=== PATIENT | female | born 1950 | race Two or more races ===

== ENCOUNTER 2021-01-05 16:46 | Emergency (ER) | payer MEDICAID ==
[~2021-01-05] VITALS: Ht 162.6 cm; Wt 90.0 kg
[2021-01-05 17:02] VITALS: BP 125/70
[2021-01-06] MEDS ORDERED: ASPI-1497 MT (10:36)
[2021-01-06] MEDS ORDERED: METF-414 MT (10:36)
[2021-01-06] MEDS ORDERED: ATOR40TA70 MT (10:36)
== END 2021-01-05 18:59 | disposition left against medical advice (07) ==
LOC: ER 16:46
DX: R55 Syncope and collapse (principal); I45.10 Unspecified right bundle-branch block; I25.2 Old myocardial infarction; Z53.21 Procedure and treatment not carried out due to patient leaving prior to being seen by health care provider
CPT/HCPCS: 71045; 93005; 99281; 99283

== ENCOUNTER 2021-01-06 00:10 | Inpatient (IN) | payer MEDICAID ==
[~2021-01-06] VITALS: Ht 162.6 cm; Wt 98.7 kg
[2021-01-06 02:36] LABS: BASOPHILS % 0.5 % (0.0-2.0); HEMATOCRIT. 42.2 % (36.0-48.0); HEMOGLOBIN. 14.4 g/dL (12.0-16.0); LYMPHOCYTES % 39.6 % (20.0-50.0); MEAN CORPUSCULAR HEMOGLOBIN 32.3 pg (28.0-32.0); MEAN CORPUSCULAR VOLUME 94.6 fL (81.0-99.0); MEAN PLATELET VOLUME 8.2 fl (7.4-10.4); MONOCYTES % 9.6 % (2.0-8.0); NEUTROPHILS % 49.3 % (40.0-76.0); PLATELET 172 x1000/uL (130-400); RED BLOOD CELL COUNT 4.46 mill/uL (4.2-5.4)
[2021-01-06 02:38] LABS: CHLORIDE 109 mEq/L (98-107)
[2021-01-06] MEDS ORDERED: LORAZEPAM 0.5MG TABLET PO PRN ×2 (04:00→15:15)
[2021-01-06] MEDS ORDERED: NALOXONE HCL 0.4MG/ML VIAL IV PRN ×2 (04:00→15:45)
[2021-01-06] MEDS ORDERED: MORPHINE SULFATE 2 MG/ML CPJ (NOT FOR IM USE) IV PRN (04:00)
[2021-01-06] MEDS ORDERED: METF-414 MT (10:36)
[2021-01-06] MEDS ORDERED: ASPI-1497 MT (10:36)
[2021-01-06] MEDS ORDERED: ATOR40TA70 MT (10:36)
[2021-01-06 10:53] VITALS: BP 114/76
[2021-01-06 12:00] VITALS: BP 117/68
[2021-01-06] MEDS ORDERED: DOCUSATE SODIUM 100MG CAPSULE PO PRN (15:15)
[2021-01-06] MEDS ORDERED: IPRATROPIUM/ALBUTEROL 0.5-3(2.5)MG/3ML NEB HHN PRN (15:15)
[2021-01-06] MEDS ORDERED: CLONIDINE 0.1MG TABLET PO PRN (15:15)
[2021-01-06] MEDS ORDERED: HYDROCODONE/ACETAMINOPHEN 5/325MG TABLET PO PRN (15:15)
[2021-01-06] MEDS ORDERED: ACETAMINOPHEN 325MG TABLET PO PRN (15:15)
[2021-01-06] MEDS ORDERED: ONDANSETRON HCL 4MG/2ML INJ IV PRN (15:15)
[2021-01-06 16:00] VITALS: BP 120/61
[2021-01-06] MEDS ORDERED: DEXTROSE 50% WATER 50ML SYRINGE IV PRN (18:15)
[2021-01-06] MEDS: INSULIN LISPRO 100 UNITS/ML SUBCUT SCH (21:00)
[2021-01-06] MEDS: BLOOD SUGAR DIAGNOSTIC STRIP TEST SCH (21:00)
[2021-01-06] MEDS: ACETAMINOPHEN 325MG TABLET PO PRN (21:32)
[2021-01-07 06:08] LABS: CHLORIDE 109 mEq/L (98-107)
[2021-01-07 06:14] LABS: BASOPHILS % 0.7 % (0.0-2.0); EOSINOPHILS % 1.4 % (0.0-5.0); HEMATOCRIT. 42.6 % (36.0-48.0); HEMOGLOBIN. 14.4 g/dL (12.0-16.0); MEAN CORPUSCULAR HEMOGLOBIN 31.9 pg (28.0-32.0); MEAN CORPUSCULAR VOLUME 94.5 fL (81.0-99.0); MEAN PLATELET VOLUME 7.6 fl (7.4-10.4); MONOCYTES % 9.2 % (2.0-8.0); NEUTROPHILS % 44.7 % (40.0-76.0); PLATELET 184 x1000/uL (130-400); RED BLOOD CELL COUNT 4.51 mill/uL (4.2-5.4)
[2021-01-07 06:20] LABS: LDL CHOLESTEROL 70 mg/dL (5-100); PHOSPHORUS 3.4 mg/dL (2.5-4.9)
[2021-01-07 06:23] LABS: HDL CHOLESTEROL 44 mg/dL (40-59)
[2021-01-07] MEDS: BLOOD SUGAR DIAGNOSTIC STRIP TEST SCH ×4 (06:40→21:00)
[2021-01-07] MEDS: INSULIN LISPRO 100 UNITS/ML SUBCUT SCH ×4 (07:10→23:26)
[2021-01-07 08:00] VITALS: BP 100/68
[2021-01-07 12:00] VITALS: BP 101/54
[2021-01-07] MEDS ORDERED: LIDOCAINE HCL 1% 20ML VIAL (Pyxis) INJ ONE ×2 (14:28→14:51)
[2021-01-07] MEDS ORDERED: GENTAMICIN SULF 40MG/ML 2ML VIAL ONE (14:28)
[2021-01-07] MEDS ORDERED: IODIXANOL 320MG/ML 100 ML BOTTLE IV ONE (14:29)
[2021-01-07] MEDS ORDERED: GENTAMICIN/NS IRRIGATION 500 ML IR ONE (14:29)
[2021-01-07] MEDS ORDERED: PROPOFOL 200MG/20ML VIAL IV ONE (15:48)
[2021-01-07] MEDS ORDERED: SUCCINYLCHOLINE CHLORIDE 200MG/10ML IV ONE (15:48)
[2021-01-07] MEDS ORDERED: EPHEDRINE SULFATE 50MG/ML VIAL ONE ×2 (15:54→17:02)
[2021-01-07] MEDS ORDERED: ETOMIDATE 2MG/ML 10ML VIAL IV ONE (15:56)
[2021-01-07] MEDS ORDERED: CEFAZOLIN SODIUM 1000MG/VIAL ONE (16:09)
[2021-01-07] MEDS ORDERED: ONDANSETRON HCL 4MG/2ML INJ ONE (16:20)
[2021-01-07] MEDS ORDERED: DEXAMETHASONE 4MG/ML 1ML VIAL ONE (16:21)
[2021-01-07] MEDS ORDERED: FENTANYL CITRATE/PF 50MCG/ML 2ML VIAL ONE (16:22)
[2021-01-07] MEDS ORDERED: ROCURONIUM BROMIDE 10MG/ML VIAL 5ML IV ONE (16:22)
[2021-01-07] MEDS ORDERED: PHENYLEPHRINE HCL 10 MG/ML 1ML (IV VIAL) IV ONE (17:14)
[2021-01-07] MEDS ORDERED: ONDANSETRON HCL 4MG/2ML INJ IV PRN (19:15)
[2021-01-07] MEDS ORDERED: HYDROMORPHONE HCL/PF 2MG/ML CPJ IV PRN (19:15)
[2021-01-07] MEDS ORDERED: HYDROCODONE/ACETAMINOPHEN 5/325MG TABLET PO PRN (19:30)
[2021-01-07 22:00] VITALS: BP 107/54
[2021-01-08] VITALS (9 sets, daily range): BP systolic 90–105; BP diastolic 44–69
[2021-01-08 06:41] LABS: CHLORIDE 110 mEq/L (98-107)
[2021-01-08] MEDS: BLOOD SUGAR DIAGNOSTIC STRIP TEST SCH ×3 (06:50→17:17)
[2021-01-08 06:57] LABS: BASOPHILS % 0.1 % (0.0-2.0); HEMATOCRIT. 43.6 % (36.0-48.0); HEMOGLOBIN. 14.5 g/dL (12.0-16.0); MEAN CORPUSCULAR HEMOGLOBIN 31.9 pg (28.0-32.0); MEAN CORPUSCULAR VOLUME 96.1 fL (81.0-99.0); MEAN PLATELET VOLUME 7.7 fl (7.4-10.4); NEUTROPHILS % 79.9 % (40.0-76.0); PLATELET 159 x1000/uL (130-400); RED BLOOD CELL COUNT 4.54 mill/uL (4.2-5.4); RED CELL DISTRIBUTION WIDTH 14.3 % (11.6-14.6)
[2021-01-08] MEDS: INSULIN LISPRO 100 UNITS/ML SUBCUT SCH ×3 (06:59→17:17)
[2021-01-08] MEDS: ACETAMINOPHEN 325MG TABLET PO PRN (08:54)
[2021-01-08] MEDS ORDERED: CEPH250C2 MT (12:51)
[2021-01-08] MEDS ORDERED: TRAM50TA3 MT (12:51)
== END 2021-01-08 18:50 | disposition home or self-care (01) | DRG 179 ==
LOC: ER 00:10 → MICUSO 02:09 → 7EST 09:16 → 3WST 01-07 20:45
PROVIDERS: ADMIT Internal Medicine; ATTEND Internal Medicine
PROC: 0JH609Z Insertion of Cardiac Resynchronization Defibrillator Pulse Generator into Chest Subcutaneous Tissue and Fascia, Open Approach (ICD-10-PCS; principal; 2021-01-07)
PROC: 02H63KZ Insertion of Defibrillator Lead into Right Atrium, Percutaneous Approach (ICD-10-PCS; 2021-01-07)
PROC: 02HK3KZ Insertion of Defibrillator Lead into Right Ventricle, Percutaneous Approach (ICD-10-PCS; 2021-01-07)
PROC: 4A023N6 Measurement of Cardiac Sampling and Pressure, Right Heart, Percutaneous Approach (ICD-10-PCS; 2021-01-07)
PROC: 02HL3KZ Insertion of Defibrillator Lead into Left Ventricle, Percutaneous Approach (ICD-10-PCS; 2021-01-07)
PROC: B517YZA Fluoroscopy of Left Subclavian Vein using Other Contrast, Guidance (ICD-10-PCS; 2021-01-07)
DX: I49.5 Sick sinus syndrome (principal); I11.0 Hypertensive heart disease with heart failure; I50.22 Chronic systolic (congestive) heart failure; E11.9 Type 2 diabetes mellitus without complications; I45.2 Bifascicular block; I25.5 Ischemic cardiomyopathy; E66.9 Obesity, unspecified; J44.9 Chronic obstructive pulmonary disease, unspecified; R29.898 Other symptoms and signs involving the musculoskeletal system; Z20.822 Contact with and (suspected) exposure to COVID-19; E78.5 Hyperlipidemia, unspecified; F17.210 Nicotine dependence, cigarettes, uncomplicated; I25.10 Atherosclerotic heart disease of native coronary artery without angina pectoris; I25.2 Old myocardial infarction; Z68.37 Body mass index [BMI] 37.0-37.9, adult; Z79.84 Long term (current) use of oral hypoglycemic drugs; Z82.3 Family history of stroke; Z95.5 Presence of coronary angioplasty implant and graft; Z79.82 Long term (current) use of aspirin; Z79.899 Other long term (current) drug therapy; Z95.818 Presence of other cardiac implants and grafts
CPT/HCPCS: 33225; 33249; 36415; 71045; 75820; 80048; 80053; 80061; 82962; 83036; 83735; 83880; 84100; 84443; 84484; 85025; 87426; 93005; 93306; 93451; 93641; 99285; A4565; C1769; C1882; C1887; C1893; C1898; C1899; C1900; J0330; J0690; J1100; J1170; J1580; J1644; J1815; J2370; J2405; J2704; J3010; J3490; Q9967